=== PATIENT | female | born 1985 | race Caucasian/White ===

== ENCOUNTER 2016-05-29 20:43 | Emergency (ER) | payer SELFPAY ==
[~2016-05-29] VITALS: Ht 165.1 cm; Wt 67.0 kg
[2016-05-29 20:47] VITALS: Ht 165.1 cm; Wt 67.0 kg
== END 2016-05-30 00:35 | disposition left against medical advice (07) ==
LOC: FTE 20:43 → E/R 05-30 00:35
DX: Z53.21 Procedure and treatment not carried out due to patient leaving prior to being seen by health care provider (principal)